=== PATIENT | female | born 1995 | race Caucasian/White ===

== ENCOUNTER 2016-03-06 10:40 | Emergency (ER) | payer BC ==
[~2016-03-06] VITALS: Ht 170.2 cm; Wt 56.8 kg
[~2016-03-06 10:40] MED LIST: AMOXICILLIN 50500 MG; FLEXERIL5 MG PO; ILOTYCIN5 MG/GM OP; LORTAB 5/500 501 TAB PO; MOTRIN 600600 MG/TAB PO; NO HOME MEDICATIONS; NUVARING VAG RING VG; SKYLA13.5 MG IY
[2016-03-06 10:42] VITALS: TEMP 98.2
[2016-03-06 11:46] LABS: BASO % 0.3 % (0.0-2.0); EOS % 0.4 % (0-4.0); GRAN # 4.4 (1.4-6.5); GRAN % 58.9 % (42.2-75.2); HEMATOCRIT 43.1 % (35.0-45.0); HEMOGLOBIN 14.2 g/dl (12.0-15.0); LYMPH # 2.5 (1.2-3.4); LYMPH % 32.6 % (20.0-51.0); MEAN CELL VOLUME 90 fl (80.0-95.0); MEAN CORPUSCULAR HEMOGLOBIN 30 pg (26.0-32.0); MEAN CORPUSCULAR HGB CONC 33 g/dl (33.0-37.0); MEAN PLATELET VOLUME 9.6 fl (7.4-10.4); MONO # 0.6 (0.1-0.6); MONO % 7.7 % (1.7-9.3); PLATELET COUNT 245 K/mm3 (130-400); RED BLOOD COUNT 4.79 M/mm3 (4.10-5.30); REDCELL DISTRIBUTION WIDTH-CV 12.5 % (11.5-14.5); WHITE BLOOD COUNT 7.5 K/mm3 (4.8-10.8)
[2016-03-06 11:54] LABS: ADJUSTED CALCIUM 9.1 mg/dL (8.4-10.2); ALBUMIN 4.7 gm/dL (3.5-5.0); BILIRUBIN,TOTAL 0.8 mg/dL (0.0-1.0); CALCIUM 9.7 mg/dL (8.4-10.2); CREATININE, serum 0.74 mg/dL (0.52-1.25); POTASSIUM 4.2 mmol/L (3.4-5.0); TOTAL PROTEIN 8.6 gm/dL (6.4-8.2)
[2016-03-06 12:25] LABS: THYROID STIMULATING HORMONE 1.22 uIU/mL (0.465-4.680)
[2016-03-06 13:15] VITALS: BP 109/78; PULSE 97
== END 2016-03-06 13:18 | disposition home or self-care (01) ==
LOC: COL.ER 10:40
PROVIDERS: Emergency Medicine
DX: R55 Syncope and collapse (principal)
CPT/HCPCS: J7030

== ENCOUNTER → 2016-11-01 | Outpatient (CLI) | payer BC | LOC: COL.RAD 12:56 | DX: M41.86 Other forms of scoliosis, lumbar region (principal); Z97.5 Presence of (intrauterine) contraceptive device ==

== ENCOUNTER 2019-06-14 10:33 | Emergency (ER) | payer BC ==
[~2019-06-14] VITALS: Ht 167.6 cm; Wt 61.4 kg
[2019-06-14 10:40] VITALS: TEMP 98.4
[2019-06-14] MEDS ORDERED: PROBIOTIC FORMU1 CAP PO (10:59)
[2019-06-14] MEDS ORDERED: ZOLOFT 100MG100 MG PO (10:59)
[2019-06-14 11:34] LABS: COLLECTION METHOD CLEAN CATCH
[2019-06-14 11:53] LABS: PH 7 (5-8); SQUAMOUS EPITHELIAL 0-2 /hpf; URINE APPEARANCE Hazy; URINE BACTERIA Rare /hpf; URINE BILIRUBIN Negative (NEGATIVE); URINE BLOOD 3+ (NEGATIVE); URINE COLOR Straw; URINE GLUCOSE Negative (NEGATIVE); URINE KETONE Negative (NEGATIVE); URINE LEUKOCYTE ESTERASE Negative (NEGATIVE); URINE NITRATE Negative (NEGATIVE); URINE PROTEIN(semi-quant) Negative (NEGATIVE); URINE UROBILINOGEN Negative (NEGATIVE)
[2019-06-14 14:22] VITALS: BP 115/81; PULSE 80
== END 2019-06-14 14:21 | disposition home or self-care (01) ==
LOC: COL.ER 10:33
PROVIDERS: Physician Assistant
DX: R10.2 Pelvic and perineal pain (principal)